=== PATIENT | female | born 1955 | race Caucasian/White ===

== ENCOUNTER 2020-09-11 05:29 | Emergency (ER) | payer OTHER, BC ==
[~2020-09-11] VITALS: Ht 139.7 cm; Wt 66.7 kg
[2020-09-11 05:33] VITALS: BP 149/100
--- NOTE | 2020-09-11 05:39 | NUR ---
PT AMBULATED W/ WALKER W/ STEADY GAIT TO ER BED 11 .
--- NOTE | 2020-09-11 05:41 | NUR ---
65 YO F BIB SELF WITH C/C OF [facility] H/A 10/10 FOR PAST X3DAYS. PT STATES THIS OCCURRED LAST MONTH, LASTED 1 WK AND THEN WENT AWAY. PT TAKES TYLENOL AND NORCO FOR THE PAIN AND STATES IT HELPS. PT FEELS SHE HAS A STIFF NECK, LIMITED ROM, DENIES SENISITIVITY TO LIGHT AND VISUAL CHANGES. PT STATES SHE HAS NAUSEA, NO VOMITTING. PT IS ON PULSE OX, BED LOCKED IN LOWEST POSITION, SIDE RAILS X2, AND SEIZURE PADS IN PLACE. HX: DM, ARTHRITIS, FIBROMYLAGIA, SEIZURES, HTN, SCIATIC NERVE PAIN, AND BACK SURGERY IN 2011 RX: GABAPENTIN, NORCO, LOSARTAN, AND TOPAMAZ NKA
--- NOTE | 2020-09-11 05:49 | NUR ---
ERMD AT BEDSIDE.
[2020-09-11] MEDS ORDERED: MORPHINE SULFATE 2 MG/ML SYR IM ONE (05:55)
[2020-09-11] MEDS ORDERED: ONDANSETRON 4 MG ODT PO ONE (05:55)
[2020-09-11 06:30] VITALS: BP 157/78
--- NOTE | 2020-09-11 06:30 | NUR ---
Patient discharged with v/s stable. Written and verbal after care instructions given and explained. Patient verbalized understanding. Ambulatory with steady gait. All questions addressed prior to discharge. Advised to follow up with PMD.
== END 2020-09-11 06:30 | disposition home or self-care (01) ==
LOC: MED 05:29
DX: R51.9 Headache, unspecified (principal); E11.9 Type 2 diabetes mellitus without complications; I10 Essential (primary) hypertension; R56.9 Unspecified convulsions; M79.7 Fibromyalgia; Z76.5 Malingerer [conscious simulation]
CPT/HCPCS: 96372; 99283; J2270; Q0162

== ENCOUNTER 2021-01-15 07:31 | Emergency (ER) | payer OTHER, BC ==
[~2021-01-15] VITALS: Ht 139.7 cm; Wt 62.1 kg
[2021-01-15 07:32] VITALS: BP 150/70
--- NOTE | 2021-01-15 07:32 | NUR ---
0725--PT ISAURO VIA GURNEY TO BED 06.
--- NOTE | 2021-01-15 07:35 | NUR ---
65 Y/O FEMALE BIBA FROM HOME FOR ABDOMINAL PAIN X 5 DAYS. LAST BM 01/14/2021, NORMOACTIVE BOWEL SOUNDS THROUGHOUT, BELCHING/FLATUS PRESENT. PT DESCRIBES PAIN ORIGINATING ON LEFT FLANK, PAIN 10/10, LOCAL, CONTINUOUS. PT STATES TAKING ADVIL WITH NO RELIEF; ONLY RELIEF WHEN PT IS NOT MOVING. PT STATES DISCOMFORT WHEN URINATING; BURNING SENSATION. PT STATES "WEAK BLADDER" CAUSING URINE INCONTINENCE. PT STATES FAINT FOUL ODOR PRESENT IN URINE. AO4, BREATHING EVEN AND UNLABORED, SKIN WARM AND DRY. BED IN LOWEST POSITION, LOCKED, X1 SIDERAIL UP. PMH - KIDNEY STONES, APPENDECTOMY, PARTIAL HYSTERECTOMY, SEIZURES, HYPERTENSION, HYPERLIPIDEMIA, DM NKA
--- NOTE | 2021-01-15 07:53 | NUR ---
LAB AT BEDSIDE
--- NOTE | 2021-01-15 07:53 | NUR ---
EKG AT BEDSIDE
--- NOTE | 2021-01-15 08:00 | NUR ---
CONSENT FOR CT WITH CONTRAST SIGNED
[2021-01-15 08:02] LABS: BASOPHILS % (AUTO) 0.5 % (0.0-2.0); EOSINOPHILS # (AUTO) 0.2 K/uL (0-0.4); EOSINOPHILS % (AUTO) 2.7 % (0.0-4.0); HEMATOCRIT 35.3 % (36-48); HEMOGLOBIN 11.5 g/dL (12.0-16.0); LYMPHOCYTES # (AUTO) 2.4 K/uL (2.5-16.5); LYMPHOCYTES % (AUTO) 32.1 % (20.5-51.1); MEAN CORPUSCULAR HEMOGLOBIN 28 pg (27-31); MEAN CORPUSCULAR HGB CONC 33 g/dL (33-37); MEAN CORPUSCULAR VOLUME 85.9 fL (80-94); MONOCYTES # (AUTO) 0.4 K/uL (0.8-1.0); MONOCYTES % (AUTO) 5.6 % (1.7-9.3); NEUTROPHILS # (AUTO) 4.3 K/uL (1.8-7.7); NEUTROPHILS % (AUTO) 59.1 % (42.2-75.2); PLATELET COUNT (AUTO) 301 K/uL (140-450); RED BLOOD CELL COUNT(AUTO) 4.11 MIL/uL (4.20-5.40); RED CELL DISTRIBUTION WIDTH 15.9 % (11.6-13.7); WHITE BLOOD COUNT (AUTO) 7.3 K/uL (4.8-10.8)
[2021-01-15 08:07] LABS: APPEARANCE,URINE CLEAR (CLEAR); BILIRUBIN,URINE NEGATIVE (NEGATIVE); BLOOD, URINE NEGATIVE (NEGATIVE); COLOR,URINE YELLOW (YELLOW); LEUKOCYTE ESTERASE ,URINE NEGATIVE (NEGATIVE); NITRITE, URINE NEGATIVE (NEGATIVE); UGLUCOSE NEGATIVE (NEGATIVE)
[2021-01-15] MEDS: ONDANSETRON 4 MG/2 ML VIAL IVP ONE (08:11)
[2021-01-15] MEDS: MORPHINE SULFATE 4 MG/ML SYR IVP ONE (08:11)
[2021-01-15 08:31] LABS: ALBUMIN 3.6 g/dL (3.4-5.0); ANION GAP 10.7 (8-16); CREATININE 0.7 mg/dL (0.6-1.3); POTASSIUM 3.7 mmol/L (3.5-5.1); TOTAL BILIRUBIN 0.3 mg/dL (0.0-1.0)
[2021-01-15] MEDS ORDERED: FAMO-92 PO (11:08)
[2021-01-15] MEDS ORDERED: ALUM355S59 PO (11:08)
--- NOTE | 2021-01-15 11:30 | NUR ---
Patient discharged with v/s stable. Written and verbal after care instructions ABOUT ABDOMINAL PAIN given and explained. Patient alert, oriented and verbalized understanding of instructions. Wheel Chair Assisted with by caregiver. All questions addressed prior to discharge. ID band removed. Patient advised to follow up with PMD. Rx of MAG HYDROX AND FAMOTIDINE given. Patient educated on indication of medication including possible reaction and side effects. Opportunity to ask questions provided and answered.
[2021-01-15 11:32] VITALS: BP 150/70
[2021-01-15] MEDS: HYDROcodone/APAP 5/325 MG 1 TAB TAB PO ONE (11:34)
== END 2021-01-15 11:30 | disposition home or self-care (01) ==
LOC: MED 07:55
DX: R10.9 Unspecified abdominal pain (principal); R11.0 Nausea; R30.0 Dysuria
CPT/HCPCS: 36415; 74177; 80053; 81003; 81025; 83690; 85025; 93005; 96374; 96375; 99285; J2270; J2405; Q9967